=== PATIENT | female | born 1990 | race Two or more races ===

== ENCOUNTER 2021-11-08 17:31 | Emergency (ER) | payer SELFPAY ==
[~2021-11-08] VITALS: Ht 152.4 cm; Wt 45.4 kg
[2021-11-08 17:45] VITALS: BP 124/60
== END 2021-11-08 20:46 | disposition left against medical advice (07) ==
LOC: ER 17:31
DX: H57.13 Ocular pain, bilateral (principal); H57.89 Other specified disorders of eye and adnexa; Z53.21 Procedure and treatment not carried out due to patient leaving prior to being seen by health care provider